=== PATIENT | male | born 1975 | race Caucasian/White ===

== ENCOUNTER 2017-03-31 19:52 | Emergency (ER) | payer MEDICAID ==
[~2017-03-31] VITALS: Ht 167.6 cm; Wt 75.3 kg
[2017-03-31 20:22] VITALS: BP 124/74
--- NOTE | 2017-03-31 22:15 | NUR ---
PT TO BED
--- NOTE | 2017-03-31 22:20 | NUR ---
PATIENT PRESENTS TO ED WITH C/O ABD PAIN X 2 MONTHS. PT DENIES N/V/D; SKIN IS PINK/WARM/DRY; AAOX4 WITH EVEN AND STEADY GAIT; LUNGS CLEAR BL; HR EVEN AND REGULAR; PT DENIES ANY FEVER, CP, SOB, OR COUGH AT THIS TIME; PATIENT STATES PAIN OF 8/10 AT THIS TIME; VSS; PATIENT POSITIONED FOR COMFORT; HOB ELEVATED; BEDRAILS UP X2; BED DOWN. ER MD MADE AWARE OF PT STATUS.
[2017-04-01 00:32] LABS: APPEARANCE,URINE CLEAR (CLEAR); BILIRUBIN,URINE NEGATIVE (NEGATIVE); BLOOD, URINE 1+ (NEGATIVE); COLOR,URINE YELLOW (YELLOW); LEUKOCYTE ESTERASE ,URINE NEGATIVE (NEGATIVE); NITRITE, URINE NEGATIVE (NEGATIVE); UGLUCOSE NEGATIVE (NEGATIVE)
[2017-04-01 00:48] LABS: BASOPHILS # (AUTO) 0.1 K/uL (0.00-0.22); BASOPHILS % (AUTO) 1.5 % (0.0-2.0); EOSINOPHILS # (AUTO) 0.2 K/uL (0-0.4); EOSINOPHILS % (AUTO) 2.8 % (0.0-4.0); HEMATOCRIT 43.7 % (36-52); HEMOGLOBIN 14.3 g/dL (12.0-18.0); LYMPHOCYTES # (AUTO) 2.9 K/uL (2.0-11.5); LYMPHOCYTES % (AUTO) 42.5 % (20.5-51.1); MEAN CORPUSCULAR HEMOGLOBIN 30 pg (27-31); MEAN CORPUSCULAR HGB CONC 33 g/dL (33-37); MEAN CORPUSCULAR VOLUME 92 fL (80-94); MONOCYTES # (AUTO) 0.4 K/uL (0.8-1.0); MONOCYTES % (AUTO) 5.7 % (1.7-9.3); NEUTROPHILS # (AUTO) 3.2 K/uL (1.8-7.7); NEUTROPHILS % (AUTO) 47.5 % (42.2-75.2); PLATELET COUNT (AUTO) 270 K/uL (140-450); RED BLOOD CELL COUNT(AUTO) 4.76 MIL/uL (4.20-6.10); WHITE BLOOD COUNT (AUTO) 6.9 K/uL (4.8-10.8)
[2017-04-01 00:58] LABS: ANION GAP 10.5 (8-16); CARBON DIOXIDE 28.5 mmol/L (21-32); CREATININE 0.9 mg/dL (0.7-1.3)
[2017-04-01 01:01] LABS: RBC,URINE 3-10 (FEW) /HPF (0-5); WBC,URINE NONE SEEN /HPF (0-5)
[2017-04-01 01:04] LABS: ALBUMIN 3.6 g/dL (3.4-5.0); TOTAL BILIRUBIN 0.2 mg/dL (0.0-1.0)
[2017-04-01 02:24] VITALS: BP 118/88
--- NOTE | 2017-04-01 02:24 | NUR ---
Patient discharged with v/s stable. Written and verbal after care instructions given and explained. Patient alert, oriented and verbalized understanding of instructions. Ambulatory with steady gait. All questions addressed prior to discharge. ID band removed. Patient advised to follow up with PMD. Rx of BCTM given. Patient educated on indication of medication including possible reaction and side effects. Opportunity to ask questions provided and answered.
== END 2017-04-01 02:24 | disposition home or self-care (01) ==
LOC: MED 19:52
DX: R31.9 Hematuria, unspecified (principal); R10.30 Lower abdominal pain, unspecified
CPT/HCPCS: 36415; 80053; 81001; 83690; 85025; 85610; 85730; 99285

== ENCOUNTER 2018-02-23 20:49 | Emergency (ER) | payer MEDICAID ==
[~2018-02-23] VITALS: Ht 162.6 cm; Wt 71.7 kg
[2018-02-23 20:56] VITALS: BP 117/82
--- NOTE | 2018-02-23 21:03 | NUR ---
PT AMBULATED TO BED 1 WITH VSS.
--- NOTE | 2018-02-23 21:04 | NUR ---
PT TO ER BED 1
[2018-02-23 21:45] LABS: APPEARANCE,URINE CLEAR (CLEAR); BILIRUBIN,URINE NEGATIVE (NEGATIVE); BLOOD, URINE NEGATIVE (NEGATIVE); COLOR,URINE YELLOW (YELLOW); LEUKOCYTE ESTERASE ,URINE NEGATIVE (NEGATIVE); NITRITE, URINE NEGATIVE (NEGATIVE); UGLUCOSE NEGATIVE (NEGATIVE)
--- NOTE | 2018-02-23 21:47 | NUR ---
PT BIB SELF C/O ABD PAIN, N/V AND HEADACHE. ABD IS ROUND, SOFT, NON TENDER ACTIVE BS X4. NO VOMITING NOTED SINCE ARRIVAL IN ER. PT IS AWAKE AND ACTING APPROPRIATE , PERRL. PT HAS SENSITIVITY TO LIGHT, LIGHTS DIMMNED, PT POSITIONED TO COMFORT. NO PMH
[2018-02-23 21:48] LABS: BASOPHILS % (AUTO) 0.2 % (0.0-2.0); EOSINOPHILS # (AUTO) 0.2 K/uL (0-0.4); EOSINOPHILS % (AUTO) 2.6 % (0.0-4.0); HEMATOCRIT 43.9 % (36-52); HEMOGLOBIN 14.8 g/dL (12.0-18.0); LYMPHOCYTES # (AUTO) 0.6 K/uL (2.0-11.5); LYMPHOCYTES % (AUTO) 7.2 % (20.5-51.1); MEAN CORPUSCULAR HEMOGLOBIN 31 pg (27-31); MEAN CORPUSCULAR HGB CONC 34 g/dL (33-37); MEAN CORPUSCULAR VOLUME 90.6 fL (80-94); MONOCYTES # (AUTO) 0.4 K/uL (0.8-1.0); MONOCYTES % (AUTO) 4.4 % (1.7-9.3); NEUTROPHILS # (AUTO) 7.4 K/uL (1.8-7.7); NEUTROPHILS % (AUTO) 85.6 % (42.2-75.2); PLATELET COUNT (AUTO) 237 K/uL (140-450); RED BLOOD CELL COUNT(AUTO) 4.85 MIL/uL (4.20-6.10); RED CELL DISTRIBUTION WIDTH 12.8 % (11.6-13.7); WHITE BLOOD COUNT (AUTO) 8.7 K/uL (4.8-10.8)
[2018-02-23 21:59] LABS: ANION GAP 8.8 (8-16); CARBON DIOXIDE 27.8 mmol/L (21-32); CREATININE 0.9 mg/dL (0.7-1.3); POTASSIUM 3.6 mmol/L (3.5-5.1)
[2018-02-23 22:05] LABS: ALBUMIN 3.8 g/dL (3.4-5.0); TOTAL BILIRUBIN 0.6 mg/dL (0.0-1.0)
[2018-02-23] MEDS ORDERED: METOCLOPRAMIDE 10 MG/2 ML INJ VIAL IVP ONE (22:50)
[2018-02-23] MEDS ORDERED: MORPHINE SULFATE 4 MG/ML SYR IVP ONE (22:50)
[2018-02-23] MEDS ORDERED: NACL 0.9% 1,000 ML IV ONE (22:50)
[2018-02-23] MEDS ORDERED: ACETAMINOPHEN EXTRA STRENGTH 500 MG TAB PO ONE (23:05)
--- NOTE | 2018-02-23 23:50 | NUR ---
PT LAYING IN BED, NO NEW NEEDS AT THIS TIME.
--- NOTE | 2018-02-24 01:00 | NUR ---
PT LAYING IN BED, SLEEPING, VSS.
[2018-02-24 02:12] VITALS: BP 104/68
--- NOTE | 2018-02-24 02:12 | NUR ---
Patient discharged with v/s stable. Written and verbal after care instructions given and explained. Patient alert, oriented and verbalized understanding of instructions. Ambulatory with steady gait. All questions addressed prior to discharge. ID band removed. Patient advised to follow up with PMD. Rx of ZOFRAN, PEPCID given. Patient educated on indication of medication including possible reaction and side effects. Opportunity to ask questions provided and answered.
== END 2018-02-24 02:12 | disposition home or self-care (01) ==
LOC: MED 20:49
DX: R51 Headache (principal); R10.13 Epigastric pain; R63.0 Anorexia; R07.81 Pleurodynia
CPT/HCPCS: 36415; 70450; 74176; 80053; 81003; 83690; 85025; 96374; 99284; J2765; J7030; 96361; J2270

== ENCOUNTER 2018-08-16 16:20 | Emergency (ER) | payer MEDICAID ==
[~2018-08-16] VITALS: Ht 152.4 cm; Wt 72.6 kg
[2018-08-16 16:29] VITALS: BP 130/89
--- NOTE | 2018-08-16 16:33 | NUR ---
PATIENT AMBULATED TO ER BED 8.
--- NOTE | 2018-08-16 16:50 | NUR ---
PATIENT PRESENTS TO ED WITH C/O HEADACHE . DENIES N/V. AAOX4 WITH EVEN AND STEADY GAIT. PT DENIES ANY FEVER OR COUGH AT THIS TIME. VSS. PATIENT POSITIONED FOR COMFORT; HOB ELEVATED; BEDRAILS UP X1; BED DOWN.
[2018-08-16] MEDS ORDERED: LIDOCAINE 1% 500 MG/50 ML VIAL INJ SCH (17:15)
[2018-08-16] MEDS ORDERED: LIDOCAINE MPF 1% 5mL VIAL ONE (17:34)
[2018-08-16 19:10] VITALS: BP 118/85
== END 2018-08-16 19:11 | disposition home or self-care (01) ==
LOC: MED 16:20
DX: G44.209 Tension-type headache, unspecified, not intractable (principal)
CPT/HCPCS: 99283; J2001

== ENCOUNTER 2018-08-22 12:42 | Emergency (ER) | payer MEDICAID ==
[~2018-08-22] VITALS: Ht 165.1 cm; Wt 73.9 kg
[2018-08-22 13:03] VITALS: BP 138/89
--- NOTE | 2018-08-22 13:06 | NUR ---
PATIENT AMBULATED TO BED 11.
--- NOTE | 2018-08-22 13:15 | NUR ---
C/O HEADACHE X2 WEEKS 8/10 THROBBING PAIN. PT REPORTS BEING SEEN AT [facility] 08/16/18 FOR THE SAME THING BUT IS STILL HAVING THE SAME PROBLEM. PT DENIES N/V, WEAKNESS/NUMBNESS TO EITHER SIDE OF BODY. PT IS ANSWERING QUESTIONS APPROPRIATELY, SPEECH IS CLEAR. MELVA.
--- NOTE | 2018-08-22 13:28 | NUR ---
LIGHTS DIMMED FOR PT COMFORT
[2018-08-22] MEDS ORDERED: KETOROLAC 30 MG/ML VIAL IM ONE (13:45)
[2018-08-22 14:21] LABS: BASOPHILS % (AUTO) 0.3 % (0.0-2.0); EOSINOPHILS # (AUTO) 0.2 K/uL (0-0.4); EOSINOPHILS % (AUTO) 2.4 % (0.0-4.0); HEMATOCRIT 41.3 % (36-52); LYMPHOCYTES # (AUTO) 1.9 K/uL (2.0-11.5); LYMPHOCYTES % (AUTO) 26.6 % (20.5-51.1); MEAN CORPUSCULAR HEMOGLOBIN 31 pg (27-31); MEAN CORPUSCULAR HGB CONC 34 g/dL (33-37); MEAN CORPUSCULAR VOLUME 90.1 fL (80-94); MONOCYTES # (AUTO) 0.5 K/uL (0.8-1.0); MONOCYTES % (AUTO) 7.1 % (1.7-9.3); NEUTROPHILS # (AUTO) 4.5 K/uL (1.8-7.7); NEUTROPHILS % (AUTO) 63.6 % (42.2-75.2); PLATELET COUNT (AUTO) 266 K/uL (140-450); RED BLOOD CELL COUNT(AUTO) 4.59 MIL/uL (4.20-6.10); RED CELL DISTRIBUTION WIDTH 13.4 % (11.6-13.7)
[2018-08-22 14:34] LABS: ANION GAP 11.3 (8-16); CARBON DIOXIDE 28.6 mmol/L (21-32); CREATININE 0.8 mg/dL (0.7-1.3); POTASSIUM 3.9 mmol/L (3.5-5.1)
[2018-08-22 14:59] VITALS: BP 120/85
--- NOTE | 2018-08-22 15:00 | NUR ---
Patient discharged with v/s stable. Written and verbal after care instructions given and explained. Patient alert, oriented and verbalized understanding of instructions. Ambulatory with steady gait. All questions addressed prior to discharge. ID band removed. Patient advised to follow up with PMD. Rx of FIORINAL given. Patient educated on indication of medication including possible reaction and side effects. Opportunity to ask questions provided and answered.
== END 2018-08-22 15:00 | disposition home or self-care (01) ==
LOC: MED 12:42
DX: R51 Headache (principal)
CPT/HCPCS: 36415; 70450; 80048; 85025; 96372; 99284; J1885

== ENCOUNTER 2018-09-27 07:59 | Emergency (ER) | payer MEDICAID ==
[~2018-09-27] VITALS: Ht 167.6 cm; Wt 74.8 kg
--- NOTE | 2018-09-27 08:03 | NUR ---
PT AMBULATED TO BED 12
[2018-09-27 08:08] VITALS: BP 117/74
--- NOTE | 2018-09-27 08:20 | NUR ---
43 Y MALE BIB SELF C/O NAUSEA AND ABD PAIN 10/10 SINCE 4 DAYS. ABDOMEN SOFT AND FLAT. BOWEL SOUNDS ACTIVE IN ALL 4 QUADRANTS. VSS AT THIS TIME. PT AA0X4. PRIMARILY SLOVENIAN SPEAKING. BED IS DOWN, LOCKED, BED RAIL X 1, ERMD TO SEE PT. PMH- DENIES
--- NOTE | 2018-09-27 08:31 | NUR ---
DR BRITTON AT BEDSIDE
[2018-09-27] MEDS ORDERED: DICYCLOMINE HCL LIQUID 20 MG, ALUMINUM HYD/MAG/SIMETHICONE 30 ML, LIDOCAINE VISCOUS 2% ... PO ONE ×3 (08:35)
[2018-09-27] MEDS ORDERED: ONDANSETRON 4 MG TAB PO ONE (08:35)
[2018-09-27] MEDS ORDERED: KETOROLAC 30 MG/ML VIAL IVP ONE (10:05)
[2018-09-27 10:53] VITALS: BP 104/75
--- NOTE | 2018-09-27 10:53 | NUR ---
Patient discharged with v/s stable. Written and verbal after care instructions given and explained. Patient alert, oriented and verbalized understanding of instructions. Ambulatory with steady gait. All questions addressed prior to discharge. ID band removed. Patient advised to follow up with PMD. Rx of mylanta, naprosyn, and bacitracin given. Patient educated on indication of medication including possible reaction and side effects. Opportunity to ask questions provided and answered.
== END 2018-09-27 10:53 | disposition home or self-care (01) ==
LOC: MED 07:59
DX: R10.13 Epigastric pain (principal)
CPT/HCPCS: 81002; 96374; 99283; J1885; Q0162

== ENCOUNTER 2019-01-07 20:46 | Emergency (ER) | payer MEDICAID ==
[~2019-01-07] VITALS: Ht 162.6 cm; Wt 73.0 kg
[2019-01-07 20:52] VITALS: BP 151/106
[2019-01-07] MEDS ORDERED: LORazepam 2 MG/ML VIAL IM ONE (21:35)
[2019-01-07] MEDS ORDERED: NACL 0.9% 1,000 ML IV ONE (22:05)
[2019-01-07 23:02] LABS: BASOPHILS % (AUTO) 0.5 % (0.0-2.0); EOSINOPHILS # (AUTO) 0.2 K/uL (0-0.4); EOSINOPHILS % (AUTO) 3.9 % (0.0-4.0); HEMATOCRIT 42.6 % (36-52); HEMOGLOBIN 14.3 g/dL (12.0-18.0); LYMPHOCYTES # (AUTO) 2.7 K/uL (2.0-11.5); LYMPHOCYTES % (AUTO) 50.4 % (20.5-51.1); MEAN CORPUSCULAR HEMOGLOBIN 31 pg (27-31); MEAN CORPUSCULAR HGB CONC 34 g/dL (33-37); MEAN CORPUSCULAR VOLUME 91.8 fL (80-94); MONOCYTES # (AUTO) 0.5 K/uL (0.8-1.0); MONOCYTES % (AUTO) 8.4 % (1.7-9.3); NEUTROPHILS % (AUTO) 36.8 % (42.2-75.2); PLATELET COUNT (AUTO) 284 K/uL (140-450); RED BLOOD CELL COUNT(AUTO) 4.64 MIL/uL (4.20-6.10); RED CELL DISTRIBUTION WIDTH 13.2 % (11.6-13.7); WHITE BLOOD COUNT (AUTO) 5.4 K/uL (4.8-10.8)
[2019-01-07 23:13] LABS: CREATININE 0.9 mg/dL (0.7-1.3)
[2019-01-07 23:19] LABS: PROTHROMBIN TIME 9.2 secs (10.8-13.4); TOTAL BILIRUBIN 0.3 mg/dL (0.0-1.0)
[2019-01-07 23:21] LABS: BARBITURATE, URINE NEG. ng/ml (NEG <=200); BENZODIAZEPINE, URINE NEG. ng/mL (NEG <=200); CANNABINOID, URINE NEG. ng/mL (NEG <=50); COCAINE, URINE NEG. ng/mL (NEG <=300); OPIATE, URINE NEG. ng/mL (NEG <=2000); PHENCYCLIDINE SCREEN,URINE NEG. ng/mL (NEG <=25)
[2019-01-08 01:16] VITALS: BP 117/82
== END 2019-01-08 01:16 | disposition home or self-care (01) ==
LOC: MED 20:46
DX: F41.9 Anxiety disorder, unspecified (principal); R20.2 Paresthesia of skin
CPT/HCPCS: 36415; 70450; 80053; 80305; 84484; 85025; 85610; 85730; 86886; 86900; 86901; 93005; 96372; 99284; J2060; J7030

== ENCOUNTER 2020-02-12 08:25 | Emergency (ER) | payer MEDICAID, OTHER ==
[~2020-02-12] VITALS: Ht 162.6 cm; Wt 73.9 kg
[2020-02-12 08:30] VITALS: BP 150/108
[2020-02-12] MEDS ORDERED: ACETAMINOPHEN 325 MG TAB PO ONE (08:50)
--- NOTE | 2020-02-12 08:52 | NUR ---
44 Y/O MALE PRESENTS TO ED C/O RIANA FRONTAL HEADACHE AND EYE PAIN W/O N/V/D OR BLURRY VISION FOR 8 MONTHS. PT IS ON THE TX OF H. PYLORI AND TAKING CLARITHROMYCIN, OMEPRAZOLE, AND AMOXICILLIN. PT ALSO TOOK TYLENOL PRN WITHOUT ANY RELIEF. DENIES DIZZINESS. PMH: H. PYLORI NKDA
--- NOTE | 2020-02-12 08:53 | NUR ---
PT TAKEN TO CT
--- NOTE | 2020-02-12 09:05 | NUR ---
PT RETURNED FROM CT
--- NOTE | 2020-02-12 09:09 | NUR ---
PT STATES HEAD ACHE PAIN 11/13, ACETOMINOPHEN GIVEN ORDERED, WILL CONTINUE TO MONITOR.
--- NOTE | 2020-02-12 09:40 | NUR ---
PT STATES HEAD ACHE HAS DECREASED TO 3/10. PENDING CT RESULTS
[2020-02-12 10:37] VITALS: BP 150/108
--- NOTE | 2020-02-12 10:38 | NUR ---
Patient discharged with v/s stable. Written and verbal after care instructions given and explained. Patient alert, oriented and verbalized understanding of instructions. Ambulatory with steady gait. All questions addressed prior to discharge. CD of CT imaging provided to patient. ID band removed. Patient advised to follow up with PMD. Rx of TYLENOL given. Patient educated on indication of medication including possible reaction and side effects. Opportunity to ask questions provided and answered.
== END 2020-02-12 10:38 | disposition home or self-care (01) ==
LOC: MED 08:25
DX: R51.9 Headache, unspecified (principal); K21.9 Gastro-esophageal reflux disease without esophagitis
CPT/HCPCS: 70450; 99284

== ENCOUNTER 2020-02-13 18:37 | Emergency (ER) | payer OTHER ==
[~2020-02-13] VITALS: Ht 167.6 cm; Wt 65.8 kg
[2020-02-13 18:49] VITALS: BP 153/113
--- NOTE | 2020-02-13 19:10 | NUR ---
Note undone in EDM - 02/13/20 at 2307 by [facility] 44 Y/O MALE PRESENTED TO THE ED C/O PENILE AND TESTICULAR PAIN 11/13, & RASH X 1 MONTH. SEEN HERE YESTERDAY FOR MIGRAINE. PT DENIES DISCHARGE FROM PENIS, PT DENIES BURNING WITH URINATION, PT DENIES FEVER. PT DENIES SUPRAPUBRIC TENDERNESS. PT IS ABLE TO VOID WITHOUT DIFFICULT OR HESITANCY. MED HX : HTN, MIGRAINES NKA
--- NOTE | 2020-02-13 19:14 | NUR ---
Received report from BETO Robledo for continuation of care.
--- NOTE | 2020-02-13 19:15 | NUR ---
44 Y/O MALE PRESENTED TO THE ED C/O PENILE AND TESTICULAR PAIN 11/13, & RASH X 1 MONTH. SEEN HERE YESTERDAY FOR MIGRAINE. PT DENIES DISCHARGE FROM PENIS, PT DENIES BURNING WITH URINATION, PT DENIES FEVER. PT DENIES SUPRAPUBRIC TENDERNESS. PT IS ABLE TO VOID WITHOUT DIFFICULT OR HESITANCY. MED HX : HTN, MIGRAINES NKA
--- NOTE | 2020-02-13 19:16 | NUR ---
LARON MCCURDY AT BEDSIDE FOR MEDICAL EVALUATION
[2020-02-13] MEDS ORDERED: cefTRIAXone 250 MG in LIDOCAINE MPF 1% 0.9 ML IM ONE (19:20)
[2020-02-13] MEDS ORDERED: AZITHROMYCIN 250 MG TAB PO ONE ×2 (19:20)
--- NOTE | 2020-02-13 19:22 | NUR ---
GAVE PT A URINE SPECIMEN CUP TO COLLECT URINE SPECIMEN FOR LAB
--- NOTE | 2020-02-13 19:25 | NUR ---
PT AMBULATED BACK TO THE BED FROM THE BATHROOM WITH A STEADY GAIT
--- NOTE | 2020-02-13 19:30 | NUR ---
PER LARON BUENO - ADMINISTER THE 2 DOSES OF AZITHROMYCIN 500 MG PO . HE WOULD LIKE THE PT TO HAVE A TOTAL OF 1GM AZITHROMYCIN PO.
--- NOTE | 2020-02-13 19:34 | NUR ---
URINE COLLECTED AND WALKED TO LAB.
[2020-02-13] MEDS ORDERED: LIDOCAINE MPF 1% 5 ML ONE (19:42)
[2020-02-13] MEDS ORDERED: cefTRIAXone 250 MG VIAL ONE (19:42)
[2020-02-13 19:43] LABS: APPEARANCE,URINE CLEAR (CLEAR); BILIRUBIN,URINE NEGATIVE (NEGATIVE); BLOOD, URINE 1+ (NEGATIVE); COLOR,URINE YELLOW (YELLOW); LEUKOCYTE ESTERASE ,URINE NEGATIVE (NEGATIVE); NITRITE, URINE NEGATIVE (NEGATIVE); UGLUCOSE NEGATIVE (NEGATIVE)
[2020-02-13 19:51] LABS: WBC,URINE 0-5 /HPF (0-5)
--- NOTE | 2020-02-13 20:00 | NUR ---
CALLED ACUTE SPECIALIST FOR 500 MG PO AZITHROMYCIN - NOT ENOUGH IN [facility] AT THIS TIME.
--- NOTE | 2020-02-13 20:15 | NUR ---
PT AMBULATED FROM ER BED 12 TO CHAIR SEAT-C WITH STEADY GAIT
[2020-02-13 20:47] VITALS: BP 149/95
--- NOTE | 2020-02-13 20:47 | NUR ---
Patient discharged with v/s stable. Written and verbal after care instructions given and explained. Patient verbalized understanding. Ambulatory with steady gait. All questions addressed prior to discharge. Advised to follow up with PMD.
--- NOTE | 2020-02-13 21:01 | NUR ---
Aspen gonzalez in ED - 02/13/20 at 2118 by [facility] PT CARRIED TO CHAIR C IN PARENTS ARMS
== END 2020-02-13 20:47 | disposition home or self-care (01) ==
LOC: MED 18:37
DX: N48.89 Other specified disorders of penis (principal); I10 Essential (primary) hypertension; Z20.2 Contact with and (suspected) exposure to infections with a predominantly sexual mode of transmission
CPT/HCPCS: 36415; 81001; 87086; 96372; 99283; J0696; J2001

== ENCOUNTER 2020-06-05 18:06 | Emergency (ER) | payer OTHER ==
[~2020-06-05] VITALS: Ht 162.6 cm; Wt 75.3 kg
[2020-06-05 18:09] VITALS: BP 167/112
--- NOTE | 2020-06-05 18:10 | NUR ---
Patient ambulated to bed 11 with steady gait
--- NOTE | 2020-06-05 18:13 | NUR ---
GARCÍA MEDEIROS AT BEDSIDE EVALUATING
--- NOTE | 2020-06-05 18:19 | NUR ---
44 Y/O MALE PT C/O HEADACHE SINCE LAST NIGHT. PT RATES PAIN 6/10 THAT IS DULL, INTERMITTENT, NONRADIATING PAIN. PT DENIES TAKING ANYTHING FOR THE PAIN. PT DENIES N/V/D. PT STATES HE HAD HEADACHE LAST YEAR WHEN HE TESTED POSITIVE FOR STDS AND STATES HE HAS THE SAME HEADACHE RIGHT NOW AND WANTS TO BE TESTED. PT IS A/O X4 WITH EVEN AND UNLABORED RESPIRATIONS. NKA MEDHX: DENIES
--- NOTE | 2020-06-05 18:28 | NUR ---
PT AMBULATED TO RESTROOM FOR URINE COLLECTION
--- NOTE | 2020-06-05 18:34 | NUR ---
COVID NOVEL SAMPLE COLLECTED AND GIVEN TO LAB ALONG WITH URINE
[2020-06-05] MEDS: KETOROLAC 30 MG/ML VIAL IM ONE (18:40)
[2020-06-05 18:50] LABS: APPEARANCE,URINE CLEAR (CLEAR); BILIRUBIN,URINE NEGATIVE (NEGATIVE); BLOOD, URINE TRACE-I (NEGATIVE); COLOR,URINE YELLOW (YELLOW); LEUKOCYTE ESTERASE ,URINE NEGATIVE (NEGATIVE); NITRITE, URINE NEGATIVE (NEGATIVE); UGLUCOSE NEGATIVE (NEGATIVE)
[2020-06-05] MEDS ORDERED: IBUP-2230 PO (18:56)
[2020-06-05 19:02] VITALS: BP 167/112
== END 2020-06-05 19:11 | disposition home or self-care (01) ==
LOC: MED 18:06
DX: R51.9 Headache, unspecified (principal); M54.2 Cervicalgia; R11.0 Nausea; I10 Essential (primary) hypertension; Z79.899 Other long term (current) drug therapy; Z20.822 Contact with and (suspected) exposure to COVID-19
CPT/HCPCS: 81003; 87491; 96372; 99283; J1885; U0003

== ENCOUNTER 2023-07-12 18:12 | Emergency (ER) | payer OTHER ==
[~2023-07-12] VITALS: Ht 162.6 cm; Wt 65.8 kg
[~2023-07-12 18:12] MED LIST: IBUP-2230 PO
[2023-07-12 18:27] VITALS: BP 198/103; PULSE 88; RESP 16; TEMP 98.8; O2SAT 99
[2023-07-12 19:08] LABS: APPEARANCE,URINE CLEAR (CLEAR); BILIRUBIN,URINE NEGATIVE (NEGATIVE); BLOOD, URINE 1+ (NEGATIVE); COLOR,URINE YELLOW (YELLOW); LEUKOCYTE ESTERASE ,URINE NEGATIVE (NEGATIVE); NITRITE, URINE NEGATIVE (NEGATIVE); PROTEIN,URINE NEGATIVE (NEGATIVE); UGLUCOSE NEGATIVE (NEGATIVE); UROBILINOGEN,URINE 0.2 EU/dL (0.2 - 1)
[2023-07-12] MEDS: KETOROLAC 30 MG/ML VIAL IVP ONE (19:13)
[2023-07-12] MEDS: ENALAPRILAT 2.5 MG/2 ML VIAL IVP ONE (19:16)
[2023-07-12 19:26] LABS: BACTERIA,URINE 1+ /HPF (None Seen); HYALINE CASTS, URINE 1 /LPF (None Seen); MUCUS,URINE None Seen /LPF (None Seen); RBC,URINE 0-5 /HPF (0-5); SQUAMOUS EPITHELIAL CELL,UR 4-10 (MOD) /LPF (0-3 (FEW)); TRICHOMONAS,URINE None Seen /HPF (None Seen); WBC,URINE 0-5 /HPF (0-5); YEAST,URINE None Seen /HPF (None Seen)
[2023-07-12 19:30] LABS: BASOPHILS # (AUTO) 0.1 K/uL (0.00-0.22); BASOPHILS % (AUTO) 1.6 % (0.0-2.0); EOSINOPHILS # (AUTO) 0.2 K/uL (0-0.4); EOSINOPHILS % (AUTO) 2.9 % (0.0-4.0); HEMATOCRIT 41.7 % (36-52); HEMOGLOBIN 14.7 g/dL (12.0-18.0); LYMPHOCYTES # (AUTO) 1.7 K/uL (2.0-11.5); LYMPHOCYTES % (AUTO) 28.7 % (20.5-51.1); MEAN CORPUSCULAR HEMOGLOBIN 32 pg (27-31); MEAN CORPUSCULAR HGB CONC 35 g/dL (33-37); MEAN CORPUSCULAR VOLUME 89.6 fL (80-94); MONOCYTES # (AUTO) 0.4 K/uL (0.8-1.0); MONOCYTES % (AUTO) 6.8 % (1.7-9.3); NEUTROPHILS # (AUTO) 3.7 K/uL (1.8-7.7); PLATELET COUNT (AUTO) 276 K/uL (140-450); RED BLOOD CELL COUNT(AUTO) 4.65 MIL/uL (4.20-6.10); RED CELL DISTRIBUTION WIDTH 13.1 % (11.6-13.7); WHITE BLOOD COUNT (AUTO) 6.1 K/uL (4.8-10.8)
[2023-07-12 19:38] LABS: CALCIUM 8.5 mg/dL (8.5-10.1); CARBON DIOXIDE 27.7 mmol/L (21-32); CREATININE 0.7 mg/dL (0.6-1.3); POTASSIUM 3.7 mmol/L (3.5-5.1)
[2023-07-12] MEDS ORDERED: LISI-486 PO (20:14)
[2023-07-12] MEDS ORDERED: NAPR-1704 PO (20:14)
[2023-07-12 20:30] VITALS: BP 140/90; PULSE 80; RESP 17; TEMP 98.2; O2SAT 97
== END 2023-07-12 20:30 | disposition home or self-care (01) ==
LOC: MED 18:12
DX: K40.90 Unilateral inguinal hernia, without obstruction or gangrene, not specified as recurrent (principal); I10 Essential (primary) hypertension; Z79.899 Other long term (current) drug therapy
CPT/HCPCS: 36415; 74176; 80048; 81001; 85025; 87086; 96374; 96375; 99285; J1885; J3490

== ENCOUNTER 2024-01-20 18:19 | Emergency (ER) | payer OTHER ==
[~2024-01-20] VITALS: Ht 161.3 cm; Wt 77.7 kg
[~2024-01-20 18:19] MED LIST changes: +LISI-951 PO; +NAPR-1704 PO
[2024-01-20 18:38] VITALS: BP 154/100; PULSE 72; RESP 18; TEMP 97.8; O2SAT 72
[2024-01-20 18:50] VITALS: O2SAT 72
[2024-01-20 19:45] LABS: BASOPHILS % (AUTO) 0.6 % (0.0-2.0); EOSINOPHILS # (AUTO) 0.1 K/uL (0-0.4); EOSINOPHILS % (AUTO) 2.4 % (0.0-4.0); HEMOGLOBIN 13.9 g/dL (12.0-18.0); LYMPHOCYTES # (AUTO) 1.7 K/uL (2.0-11.5); LYMPHOCYTES % (AUTO) 34.6 % (20.5-51.1); MEAN CORPUSCULAR HEMOGLOBIN 30 pg (27-31); MEAN CORPUSCULAR HGB CONC 34 g/dL (33-37); MEAN CORPUSCULAR VOLUME 89.6 fL (80-94); MONOCYTES # (AUTO) 0.4 K/uL (0.8-1.0); NEUTROPHILS # (AUTO) 2.6 K/uL (1.8-7.7); NEUTROPHILS % (AUTO) 53.4 % (42.2-75.2); PLATELET COUNT (AUTO) 281 K/uL (140-450); RED BLOOD CELL COUNT(AUTO) 4.57 MIL/uL (4.20-6.10); RED CELL DISTRIBUTION WIDTH 13.3 % (11.6-13.7); WHITE BLOOD COUNT (AUTO) 4.9 K/uL (4.8-10.8)
[2024-01-20 19:47] LABS: APPEARANCE,URINE CLEAR (CLEAR); BILIRUBIN,URINE NEGATIVE (NEGATIVE); BLOOD, URINE 1+ (NEGATIVE); COLOR,URINE YELLOW (YELLOW); LEUKOCYTE ESTERASE ,URINE NEGATIVE (NEGATIVE); NITRITE, URINE NEGATIVE (NEGATIVE); PROTEIN,URINE NEGATIVE (NEGATIVE); UGLUCOSE NEGATIVE (NEGATIVE); UROBILINOGEN,URINE 0.2 EU/dL (0.2 - 1)
[2024-01-20 19:58] LABS: BACTERIA,URINE FEW /HPF (None Seen); SQUAMOUS EPITHELIAL CELL,UR 0-3 (FEW) /LPF (0-3 (FEW)); WBC,URINE 0-5 /HPF (0-5)
[2024-01-20 20:00] LABS: ALBUMIN 3.7 g/dL (3.4-5.0); BILIRUBIN,DIRECT 0.1 mg/dL (0.0-0.3); TOTAL BILIRUBIN 0.3 mg/dL (0.0-1.0); TOTAL PROTEIN, SERUM 7.5 g/dL (6.4-8.2)
[2024-01-20 20:06] LABS: ANION GAP 8.4 (8-16); CALCIUM 8.9 mg/dL (8.5-10.1); CARBON DIOXIDE 30.2 mmol/L (21-32); CREATININE 0.7 mg/dL (0.6-1.3); POTASSIUM 3.6 mmol/L (3.5-5.1)
[2024-01-20 20:34] VITALS: BP 129/86; PULSE 78; RESP 18; TEMP 98; O2SAT 98
== END 2024-01-20 20:34 | disposition home or self-care (01) ==
LOC: MED 18:19
DX: R10.32 Left lower quadrant pain (principal); R39.11 Hesitancy of micturition; I10 Essential (primary) hypertension; E78.5 Hyperlipidemia, unspecified; Z98.890 Other specified postprocedural states; Z79.899 Other long term (current) drug therapy
CPT/HCPCS: 36415; 80048; 80076; 81001; 83690; 85025; 99284